=== PATIENT | male | born 1950 | race Hispanic/Latino ===

== ENCOUNTER 2020-02-02 09:00 | Inpatient (IN) | payer OTHER ==
[~2020-02-02] VITALS: Ht 167.6 cm; Wt 80.8 kg
[2020-02-02 11:05] VITALS: BP 147/79
[2020-02-02 11:08] LABS: BASOPHILS % (AUTO) 0.5 % (0.0-5.0); EOSINOPHILS % (AUTO) 5.1 % (0.0-8.0); MEAN CORPUSCULAR HEMOGLOBIN 31.1 pg (27.0-33.0); MEAN CORPUSCULAR HGB CONC 34.3 g/dL (32.0-36.0); MEAN CORPUSCULAR VOLUME 90.5 fL (79-99); MONOCYTES % (AUTO) 9.1 % (3.0-13.0); NEUTROPHILS % (AUTO) 66.9 % (40.0-77.0); PLATELET COUNT (AUTO) 239 K/uL (130-400); RED BLOOD CELL COUNT(AUTO) 4.86 MIL/uL (4.50-6.20); WHITE BLOOD COUNT (AUTO) 7.7 K/uL (4.8-10.8)
[2020-02-02 11:17] LABS: CREATININE 0.9 mg/dL (0.5-1.5); POTASSIUM 4.5 mmol/L (3.5-5.1)
[2020-02-02 11:38] LABS: INR 1.01 (0.85-1.15); PROTHROMBIN TIME 10.8 SEC (9.6-11.6)
[2020-02-02 11:40] LABS: PARTIAL THROMBOPLASTIN TIME 27.5 SEC (26.3-35.5)
[2020-02-03] MEDS ORDERED: ROSU40TA21 PO (12:57)
[2020-02-03] MEDS ORDERED: TAMS-1 PO (12:57)
[2020-02-03] MEDS ORDERED: CHOL100053 PO (12:57)
[2020-02-03] MEDS ORDERED: ACET-2743 PO (12:57)
[2020-02-08] VITALS (20 sets, daily range): BP systolic 120–146; BP diastolic 64–86
[2020-02-08] MEDS ORDERED: LACTATED RINGERS 1000ML 1,000 ML IV ONE (11:28)
[2020-02-08] MEDS ORDERED: LIDOCAINE PF 100MG/5ML (2%) SYRINGE 5ML ONE (11:38)
[2020-02-08] MEDS ORDERED: SUCCINYLCHOLINE CHLORIDE 20 MG/ML 10 ML VIAL ONE (11:38)
[2020-02-08] MEDS ORDERED: PROPOFOL 10 MG/ML 20ML VIAL IV ONE (11:39)
[2020-02-08] MEDS ORDERED: FENTANYL CITRATE PF 50 MCG/1 ML 2ML VIAL ONE (11:39)
[2020-02-08] MEDS ORDERED: ROCURONIUM 10MG/1ML SYR 10 MG/ML ML ONE (11:42)
[2020-02-08] MEDS ORDERED: THROMBIN-JMI 20000 UNIT KIT TP ONE (11:52)
[2020-02-08] MEDS ORDERED: BUPIVACAINE/PF 0.25% 30ML VIAL IJ ONE (11:58)
[2020-02-08] MEDS ORDERED: ALBU90AE2 IH (11:59)
[2020-02-08] MEDS ORDERED: CALDOLOR 800MG+NS 250ML 250 ML IV ONE (12:21)
[2020-02-08] MEDS ORDERED: EPHEDRINE SULFATE 50 MG/ML AMPULE ONE (12:44)
[2020-02-08] MEDS ORDERED: VANCOMYCIN 1G VIAL ONE (12:46)
[2020-02-08] MEDS ORDERED: TRANEXAMIC ACID 1000MG/10ML ONE (12:47)
[2020-02-08] MEDS ORDERED: DEXAMETHASONE SOD PHOSPHATE 4 MG/ML 1ML VIAL ONE (12:47)
[2020-02-08] MEDS ORDERED: CEFAZOLIN SODIUM 1 GM VIAL ONE (12:47)
[2020-02-08] MEDS ORDERED: KETOROLAC 30MG VIAL (30MG/ML) ONE (12:48)
[2020-02-08] MEDS ORDERED: NEOSTIGMINE 5MG/5ML SYR IV ONE (13:55)
[2020-02-08] MEDS ORDERED: GLYCOPYRROLATE 1 MG/5 ML SYRINGE ONE (13:55)
[2020-02-08] MEDS ORDERED: ORPHENADRINE CITRATE 30 MG/ML ML IM SCH (14:45)
[2020-02-08] MEDS ORDERED: ACETAMINOPHEN WITH CODEINE 1 TAB TAB ONE (16:26)
[2020-02-08] MEDS ORDERED: ACETAMINOPHEN WITH CODEINE 1 TAB TAB PO SCH (16:30)
== END 2020-02-08 17:25 | disposition home or self-care (01) | DRG 472 ==
LOC: EDSTATUS 02-08 09:00 → DAHIP 02-08 10:18
PROVIDERS: ADMIT Neurological Surgery; ATTEND Neurological Surgery
PROC: 4A11X4G Monitoring of Peripheral Nervous Electrical Activity, Intraoperative, External Approach (ICD-10-PCS; 2020-02-08)
PROC: 0RG10A0 Fusion of Cervical Vertebral Joint with Interbody Fusion Device, Anterior Approach, Anterior Column, Open Approach (ICD-10-PCS; principal; 2020-02-08 12:15)
PROC: 0RB30ZZ Excision of Cervical Vertebral Disc, Open Approach (ICD-10-PCS; 2020-02-08 12:15)
DX: M48.02 Spinal stenosis, cervical region (principal); G95.29 Other cord compression; E78.00 Pure hypercholesterolemia, unspecified; M50.31 Other cervical disc degeneration, high cervical region; Z20.828 Contact with and (suspected) exposure to other viral communicable diseases; M25.78 Osteophyte, vertebrae; Z87.891 Personal history of nicotine dependence; Z83.3 Family history of diabetes mellitus; Z82.49 Family history of ischemic heart disease and other diseases of the circulatory system
CPT/HCPCS: 36415; 71045; 72020; 80048; 85025; 85610; 85730; 93005; A4606; C1713; G0378; J0330; J0690; J1040; J1100; J1741; J1885; J2001; J2704; J2710; J3010; J3370; J3490; J7120; U0003